=== PATIENT | female | born 1950 | race African-American/Black ===

== ENCOUNTER 2017-12-15 12:39 | Inpatient (IN) | payer MEDICARE ==
[2017-12-15] MEDS: Cefepime 1 GM in Sodium Chloride 0.9% 100 ML IVPB SCH (17:39)
[2017-12-15] MEDS ORDERED: Benzonatate 100 MG CAP PO PRN (17:54)
[2017-12-15] MEDS ORDERED: hydrALAZINE 20 MG/ML VIAL SLOW IVP PRN (17:54)
[2017-12-15] MEDS ORDERED: Ondansetron HCl/PF 4 MG/2 ML Vial IVP PRN (17:54)
[2017-12-15] MEDS ORDERED: cloNIDine 0.1 MG TAB PO PRN (17:54)
[2017-12-15] MEDS ORDERED: Ondansetron ODT 4 MG TAB PO PRN (17:54)
[2017-12-15] MEDS: Acetaminophen 500 MG TAB PO PRN (18:31)
[2017-12-15] MEDS: Famotidine 20 MG TAB PO SCH (21:04)
[2017-12-15] MEDS: Enoxaparin Sodium 80 MG/0.8 ML SYRINGE SC SCH (21:05)
--- NOTE | 2017-12-16 00:49 | HP ---
DATE OF ADMISSION: 12/15/2017 PRIMARY CARE PROVIDER: Dr. Daniela Gaines. Previously, Dr. Johnnie Stokes. CHIEF COMPLAINT: Shortness of breath and right lower extremity swelling. HISTORY OF PRESENT ILLNESS: This is a 67-year-old -Azerbaijani female who presents to [facility] and transfer from [facility] in [place], [place]; after the patien t was recently admitted for increasing right lower extremity swelling discovered with an extensive de ep venous thrombosis on 12/15/2017. The patient also had complained of increasing cough and shortnes s of breath and diagnosed with a possible early pneumonia in the right lower chest. The patient was admitted to the hospital for pulmonary infection, receiving Zosyn and Levaquin. The patient also com plained of increasing shortness of breath despite IV antibiotic therapy and pulmonary support. The p atgonzalo underwent CT angiogram of the chest showing evidence of massive bilateral pulmonary embolus wi th associated significant parenchymal disease, right greater than left. The patient received Xarelto 15 mg as well as 120 mg of Lovenox and was transferred to [facility] for further evaluation and Pulmonology consultation. The patient denies any prior similar history, sedentary lifestyle, re cent extremity trauma or surgical intervention. The patient denies any history of prior pneumonia, b ut does state she smoked for many years, quitting in the last 4 days prior to this evaluation. The dianna rudd admits to history of hypertension as well as mild COPD treated with intermittent bronchodilato r via metered dose inhaler. The patient denies any hemoptysis, fever, chills, home oxygen use or rec ent chest trauma. The patient states her shortness of breath has improved after receiving the blood thinners stated previously. PAST MEDICAL HISTORY: 1. Hypertension. 2. Tobacco abuse. 3. Hyperlipidemia. 4. Chronic obstructive pulmonary disease. PAST SURGICAL HISTORY: Status post bilateral tubal ligation. CURRENT MEDICATIONS: 1. Vitamin D3 of 5000 units p.o. daily. 2. Nexium 40 mg p.o. daily. 3. Lisinopril 20 mg p.o. daily. ALLERGIES: ASPIRIN, EZETIMIBE, HYDROCHLOROTHIAZIDE, TRIAMTERENE. FAMILY HISTORY: Positive for hypertension. SOCIAL HISTORY: The patient is , resides near [place], [place] in [place]. Smokes up to a pack of cigarettes daily. No alcohol or illicit drug use. Functional of all activities of daily living. REVIEW OF SYSTEMS: The following complete review of systems was negative, unless otherwise mentioned in the HPI or below: Constitutional: Weight loss or gain, ability to conduct usual activities. Ski n: Rash, itching. Eyes: Double vision, pain. ENT/Mouth: Nose bleeding, neck stiffness, pain, tend erness. Cardiovascular: Palpitations, dyspnea on exertion, orthopnea. Respiratory: Shortness of b reath, wheezing, cough, hemoptysis, fever or night sweats. Gastrointestinal: Poor appetite, abdomin al pain, heartburn, nausea, vomiting, constipation, or diarrhea. Genitourinary: Urgency, frequency, dysuria, nocturia. Musculoskeletal: Pain, swelling. Neurologic/Psychiatric: Anxiety, depression. Allergy/Immunologic: Skin rash, bleeding tendency. Otherwise negative except as stated per HPI. PHYSICAL EXAMINATION: VITAL SIGNS: Currently, blood pressure 144/67, pulse 101, respiratory rate 20, temperature 98.5 degr ees Fahrenheit, O2 saturation 95% on 4 liters by nasal cannula. GENERAL APPEARANCE: This is a 67-year-old -Azerbaijani female, alert and oriented x3, pleasant, conversant, in no acute distress. HEENT: Pupils are equal, round, and reactive to light and accommodation. Extraocular muscles are in tact. No scleral icterus, no conjunctival injection. Nares patent. OP is clear. NECK: Supple, no cervical adenopathy, no thyromegaly, no carotid bruits, no JVD appreciated. Cervic al spine with full active and passive range of motion. No meningeal signs appreciated. CHEST: Diminished breath sounds in the bases bilaterally with occasional expiratory wheezes. CARDIOVASCULAR: S1, S2 with distant heart sounds. No murmur, rub or gallop appreciated. ABDOMEN: Rounded, soft, nontender, nondistended. Bowel sounds are positive in all four quadrants. There is no hepatosplenomegaly, no abdominal bruits, no rebound or guarding appreciated. EXTREMITIES: Warm and dry with fair turgor. Mild pitting edema to the right lower extremity compare d to the left lower extremity. Pulses are palpable distally at the dorsalis pedis, posterior tibial, and popliteal arteries bilaterally. Capillary refill less than 2 seconds. NEUROLOGIC: Cranial nerves II-XII are grossly intact. No focal or lateralizing signs appreciated. PERTINENT LABORATORY AND X-RAY FINDINGS: Sodium 135, potassium 4.0, chloride 107, CO2 of 22, BUN 13, creatinine 0.8, glucose 110, calcium 8.6. LFTs within normal limits. CBC showed a white blood cell count of 19.9, hemoglobin 11.4, hematocrit 34, platelet count 157. Telemetry monitoring shows a sin us mechanism without acute arrhythmia or dysrhythmia. CT angiogram of the chest dated 12/15/2017 og wed massive bilateral pulmonary embolus with associated parenchymal disease, right greater than left. ASSESSMENT AND PLAN: 1. Acute bilateral pulmonary emboli. The patient will be admitted to the intermediate care unit. W e will continue general pulmonary supportive measures. Lovenox 80 mg subcutaneously q.12 hours. Pul monology consultation. A 2D transthoracic echocardiogram performed 12/15/[address] [facility] showed ejection fraction of 83%. Enlarged left atrium with mitral and tricuspid regurgitation. 2. Right lower extremity deep venous thrombosis. We will continue Lovenox 80 mg subcutaneously q.12 hours as stated previously in #1. 3. Hypertension. Continue lisinopril 20 mg daily. Serial blood pressure monitoring. 4. Tobacco abuse. We will offer smoking cessation resources prior to discharge. Consider transderm al nicotine replacement. 5. Prophylaxis. Hold sequential compression devices due to right lower extremity deep venous thromb osis. Pepcid 20 mg p.o. b.i.d. 6. Code status is FULL. Surrogate medical decision maker is patient's spouse.
[2017-12-16 04:59] LABS: Anion Gap 13 mmol/L (10-20); BUN (Urea Nitrogen) 15 mg/dL (9.8-20.1); Calc. Creatinine Clearance 87 mL/min (70-130); Carbon Dioxide 19 mmol/L (23-31); Chloride 111 mmol/L (98-107); Estimated GFR-MDRD 83; Glucose 145 mg/dL (80-115); Sodium 139 mmol/L (136-145)
[2017-12-16 05:37] LABS: Band 27 % (5-11); Hemoglobin 10.9 g/dL (12.0-16.0); Lymphocytes 4 % (21-51); MDiff Complete? YES; Mean Corpuscular HGB CONC 33.2 g/dL (32.0-36.0); Mean Corpuscular Hemoglobin 28.3 pg (27.0-31.0); Mean Corpuscular Volume 85.4 fL (78.0-98.0); Mean Platelet Volume 9.3 fL (7.4-10.4); Monocytes 2 % (0-10); Neutrophil 67 % (42-75); PLT Morphology Comment Appears Adequate; Platelet Count 186 thou/uL (130-400); RBC Distribution Width 13.3 % (11.5-14.5); Red Blood Cell (RBC) Count 3.84 mill/uL (4.20-5.40); White Blood Cell (WBC) Count 24.3 thou/uL (4.8-10.8)
[2017-12-16] MEDS: Cefepime 1 GM in Sodium Chloride 0.9% 100 ML IVPB SCH ×2 (05:41→17:27)
[2017-12-16] MEDS ORDERED: Furosemide 40 MG/4 ML VIAL SLOW IVP SCH (08:45)
--- NOTE | 2017-12-16 10:04 | CON ---
DATE OF CONSULTATION: 12/15/2017 HISTORY OF PRESENT ILLNESS: A 67-year-old female who apparently states she is 187-pound, 5 feet 6 inches, BMI 30 who apparently presented to the ER last Wednesday, 4 days ago with pain and swelling in the right and left leg. She was discharged home with tramadol. She comes back several days later with worsening swelling and a cough. X-ray was taken apparently a diagnosis of pneumonia was made. In the interim, ultrasound of the leg revealed extensive DVT. She had an echocardiogram which showed also massive pulmonary emboli. Apparently the report of the echocardiogram shows EF was normal. The patient was transferred from [facility] directly to the MICU. She is awake, alert, responsive. She tells me she has a longstanding history of tobacco abuse, a pack every 3 days. Of a year ago, she was walking up to a mile and a half a day. She has been employed at [employer]. She was a nurse for a period of time. She was an [employer] for a period of time. 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 She denies any previous history of TB, pneumonia, bronchial asthma. She is coughing some yellow sputum. Had a low grade fever, but denies any chest pain or chills. She is telling me right now she is not short of breath. In [facility] as per the medical records, she received 2 doses of Lovenox apparently 60 mg x2 and apparently Xarelto 50 mg apparently yesterday or today is unclear. PAST MEDICAL HISTORY: Pertinent mainly for hypertension. Denies diabetes. PAST SURGICAL HISTORY: Tubal ligation. MEDICATIONS AT HOME: Include lisinopril, Ventolin, Nexium, and tramadol. ALLERGIES: ASPIRIN, ZETIA, AND MAXIDE. SOCIAL HISTORY: She apparently lives with her . PHYSICAL EXAMINATION: GENERAL: She is awake, alert, responsive. VITAL SIGNS: Sats are 94% on supplemental oxygen 4 L, pulse 80, blood pressure is 130/80. She is awake. Her right leg is markedly swollen. Left leg is unremarkable. CHEST: Extensive rhonchi noted in the entire right chest. Left lung unremarkable. CARDIAC: Sinus tachycardia. ABDOMEN: Distended, soft. NEUROLOGIC: She is awake and responsive. LABORATORY DATA: Extensive lab results were reviewed from [facility]. Glucose was slightly elevated. Liver functions were normal. Kidney function was normal. H&H 11 and 35. Her vital signs at [facility] revealed a blood pressure of 140/82, oxygen saturation was 95%, pulse was 78 upon arrival in the ER over there. White count was 15,000. I reviewed the CAT scan of the chest has extensive right-sided infiltrate, small right pleural effusion, pulmonary emboli. Ultrasound shows extensive right leg DVT. IMPRESSION: 1. Extensive right leg deep venous thrombosis with pulmonary emboli. 2. Right-sided pneumonia with pleural effusion. 3. Hypertension. I would reinitiate Lovenox mg per kg subcu q.12 hours. Hold Xarelto for the time being, broad-spectrum antibiotics initiated, nebulizer treatments and steroids. Proton pump inhibitors. We will follow up and discuss. Forty-five minutes critical care time. NELL
--- NOTE | 2017-12-16 10:09 | RAD ---
CHEST 1 VIEW: Date: 12/16/17 HISTORY: Ventilated patient. COMPARISON: None. FINDINGS: Exam is limited due to rightward patient. There is extensive bilateral air space opacity throughout b oth lungs. Right greater than left small to moderate pleural effusions. No pneumothorax. IMPRESSION: 1. Layering bilateral pleural effusions, larger on the right. 2. Extensive air space opacities throughout the lungs concerning for multifocal infection. POS: [facility]
--- NOTE | 2017-12-16 10:09 | PRG ---
DATE OF SERVICE: 12/16/2017 HISTORY: Nathalie Reyes is a 67-year-old female with bilateral pulmonary emboli and DVT who developed m arked shortness of breath this morning after she went to the bathroom, unable to catch her breath. S he was placed on BiPAP to which she says she seems better. Denies any coughing or wheezing. PHYSICAL EXAMINATION: VITAL SIGNS: Her sats were 93% prior to that on 4 liters, respiration 20, pulse 102, temperature 97, blood pressure 155/97. CHEST: Decreased breath sounds, no wheezing. CARDIAC: Normal S1, S2, no gallops. ABDOMEN: Soft. No masses. LABORATORY: Electrolytes are normal. PH is normal. White count 24,000. X-ray shows extensive bila teral infiltrates, haziness consistent with congestive heart failure and pneumonia. There may be a s mall pleural effusion. IMPRESSION: 1. Bilateral pulmonary emboli. 2. Extensive deep venous thrombosis. 3. Obesity. 4. Hypertension. 5. Possibly pneumonia. PLAN: Continue broad spectrum antibiotics, steroids, neb treatments, Lovenox. Continue Lovenox unti l she is stable. Thereafter, we can switch her to either Xarelto or Eliquis. Lasix been ordered. Echo is being ordered. I will follow.
[2017-12-16] MEDS: Lisinopril 20 MG TAB PO SCH (10:14)
[2017-12-16] MEDS: Enoxaparin Sodium 80 MG/0.8 ML SYRINGE SC SCH ×2 (10:15→20:21)
[2017-12-16] MEDS: Famotidine 20 MG TAB PO SCH ×2 (10:16→20:30)
[2017-12-16] MEDS: Acetaminophen 500 MG TAB PO PRN ×3 (10:23→23:43)
[2017-12-16 12:22] VITALS: BMI 31.6
--- NOTE | 2017-12-16 15:50 | PDOC.PN ---
- Subjective Encounter Start Date: 12/16/17 Encounter Start Time: 15:35 Subjective: f/u for bilateral PE's/RLE DVT on Lovenox. Required BiPAP earlier this -: am with worsening SOB. Remains on FM O2 currently. - Objective Resuscitation Status: Resuscitation Status FULL:Full Resuscitation MAR Reviewed: Yes Vital Signs & Weight: Vital Signs (12 hours) Temp Pulse Resp BP Pulse Ox 12/16/17 12:18 96 16 93 L 12/16/17 11:12 97.8 F 101 H 22 H 148/93 H 94 L 12/16/17 08:00 97.7 F 102 H 20 93 L 12/16/17 07:28 97.7 F 102 H 20 155/97 H 93 L 12/16/17 06:43 96 12/16/17 06:36 95 16 96 12/16/17 04:00 97.7 F 109 H 20 122/78 97 Weight Admit Weight 187 lb Weight 196 lb 3 oz I&O: 12/15/17 12/16/17 12/17/17 06:59 06:59 06:59 Intake Total 1320 Output Total 1000 Balance 320 Result Diagrams: 12/16/17 04:19 12/16/17 04:19 Additional Labs: Microbiology 12/16/17 04:45 Stool Stool Occult Blood (CÉSAR) - Final 12/16/17 01:55 Sputum Respiratory Culture - Preliminary Laboratory Tests 12/15/17 12/16/17 16:57 04:19 B-Natriuretic Peptide 418.1 H TSH 3rd Generation 0.1234 L Radiology Reviewed by me: Yes (PCXR - bilat pleural effusions R>L, diffuse interstitial changes) EKG Reviewed by me: Yes (Tele - Sinus tachycardia in 100's) Phys Exam - Physical Examination alert, resp distress, responsive to questions HEENT: PERRLA, sclera anicteric, oral pharynx no lesions Neck: no nodes, no JVD, supple, full ROM diminished in bases, occasional rhonchi tachycardic S1, S2 Cardiovascular: no significant murmur, no rub, gallop Gastrointestinal: soft, non-tender, no distention, positive bowel sounds minimal peripheral edema Musculoskeletal: pulses present Neurological: non-focal, normal sensation, moves all 4 limbs Psychiatric: normal affect, A&O x 3 Skin: normal turgor, cap refill <2 seconds Dx/Plan (1) Pulmonary embolism, bilateral Code(s): I26.99 - OTHER PULMONARY EMBOLISM WITHOUT ACUTE COR PULMONALE Status : Acute Comment: Extensive involvement, continue Lovenox BID, O2 support (2) Deep vein thrombosis (DVT) of right lower extremity Code(s): I82.401 - ACUTE EMBOLISM AND THOMBOS UNSP DEEP VEINS OF R LOW EXTREM Status: Acute Qualifiers: Chronicity: acute Comment: RLE involvement, continue Lovenox 80mg sc BID (3) Acute respiratory failure with hypoxia Code(s): J96.01 - ACUTE RESPIRATORY FAILURE WITH HYPOXIA Status: Acute Comment: BiPAP as clinically needed, O2 via FM currently, Duonebs, Solumedrol, empiric Levaquin and Cefepime with ? underlying infectious process (4) Tobacco abuse Code(s): Z72.0 - TOBACCO USE Status: Chronic Comment: Tobacco cessation resources (5) HTN (hypertension) Code(s): I10 - ESSENTIAL (PRIMARY) HYPERTENSION Status: Chronic Qualifiers: Hypertension type: essential hypertension Qualified Code(s): I10 - Essential (primary) hypertension Comment: stable, continue Lisinopril 20mg daily - Plan continue antibiotics, social scientist, respiratory therapy Stable overall -: Continue Lovenox 80mg sc BID -: Repeat 2D echo -: Continue pulmonary supportive measures with Solumedrol, Levaquin, Duonebs -: PCXR in am * AM lab: BMP, CBC
[2017-12-16 17:43] LABS: Actual Bicarbonate (HCO3a) 20.2 mEq/L (22-28); Base Excess (BEa) -2.7 mEq/L (-2.0 to +3.0); CO2 Tension 29.5 mmHg (35.0-45.0); Carboxyhemoglobin (COHb) 0.9 gm% (0.0-3.0); Hemoglobin (Hb) 12.7 g/dL (12.0-16.0); O2 Tension (PaO2) 62.1 mmHg (> 80.0); Potassium - ABG Lab 3.6 mmol/L (3.70-5.30); pH, Arterial 7.45 (7.35-7.45)
[2017-12-16 17:44] LABS: ALV-art Gradient 293.175 (0-20); Calcium, Ionized 1.17 mmol/L (1.12-1.30); Puncture Site LR
[2017-12-16] MEDS ORDERED: ALPRAZolam 0.25 MG TAB PO SCH (18:15)
[2017-12-16] MEDS: ALPRAZolam 0.25 MG TAB PO SCH (20:21)
[2017-12-17 04:11] LABS: Anion Gap 15 mmol/L (10-20); BUN (Urea Nitrogen) 16 mg/dL (9.8-20.1); Calc. Creatinine Clearance 84 mL/min (70-130); Calcium 9.3 mg/dL (7.8-10.44); Carbon Dioxide 24 mmol/L (23-31); Chloride 107 mmol/L (98-107); Estimated GFR-MDRD 75; Glucose 131 mg/dL (80-115); Potassium 4.1 mmol/L (3.5-5.1); Sodium 142 mmol/L (136-145)
[2017-12-17 04:17] LABS: Band 3 % (5-11); Hemoglobin 12.3 g/dL (12.0-16.0); MDiff Complete? YES; Mean Corpuscular HGB CONC 33.4 g/dL (32.0-36.0); Mean Corpuscular Hemoglobin 28.6 pg (27.0-31.0); Mean Corpuscular Volume 85.7 fL (78.0-98.0); Mean Platelet Volume 9.9 fL (7.4-10.4); Monocytes 4 % (0-10); Neutrophil 93 % (42-75); PLT Morphology Comment Appears Adequate; Platelet Count 221 thou/uL (130-400); RBC Distribution Width 13.5 % (11.5-14.5); RBC Morphology Normal; Red Blood Cell (RBC) Count 4.29 mill/uL (4.20-5.40)
[2017-12-17] MEDS: Cefepime 1 GM in Sodium Chloride 0.9% 100 ML IVPB SCH ×2 (05:39→17:19)
[2017-12-17] MEDS ORDERED: Furosemide 40 MG/4 ML VIAL SLOW IVP SCH (08:30)
--- NOTE | 2017-12-17 08:33 | PRG ---
DATE OF SERVICE: 12/17/2017 She is a 67-year-old female who this morning she is on a BiPAP, having difficulty breathing. PHYSICAL EXAMINATION: VITAL SIGNS: Temperature 98, pulse 128, sats 100%, blood pressure 154/88. Her I's and O's 1287 in, 2810 out. CHEST: Chest revealed extensive rhonchi and crackles bilaterally. CARDIAC: Sinus tachycardia. ABDOMEN: Soft. On 55% FiO2 her pO2 was only 62, pH of 7.45. White count 20,000, H&H 12 and 36, platelet count of 23 1. Electrolytes are normal. IMPRESSION: 1. Respiratory failure. 2. Bilateral bronchopneumonia. 3. Bilateral pulmonary emboli, extensive. 4. Right leg deep venous thrombosis much improved. 5. Probably congestive heart failure. PLAN: We will try high flow O2 to see if it will help with breathing. Continue steroids, neb treatm ents, and broad-spectrum antibiotics. Continue Lovenox. Would not switch her over to Eliquis until she is much more stable. Obviously if her condition gets worse, she may require intubation. Continu e supportive care.
[2017-12-17] MEDS: ALPRAZolam 0.25 MG TAB PO SCH ×3 (08:45→20:16)
[2017-12-17] MEDS: Enoxaparin Sodium 80 MG/0.8 ML SYRINGE SC SCH ×2 (08:46→20:17)
[2017-12-17] MEDS: Famotidine 20 MG TAB PO SCH ×2 (08:52→20:16)
[2017-12-17] MEDS: Lisinopril 20 MG TAB PO SCH (08:52)
--- NOTE | 2017-12-17 09:09 | RAD ---
CHEST 1 VIEW: HISTORY: Ventilated patient. COMPARISON: Radiograph of prior day. FINDINGS: Heart size is enlarged. Moderate edema. Small effusions. IMPRESSION: Cardiomegaly with small effusions and moderate pulmonary edema. Multifocal infection is also a possi bility. POS: [facility]
--- NOTE | 2017-12-17 10:44 | PDOC.PN ---
- Subjective Encounter Start Date: 12/17/17 Encounter Start Time: 10:35 Subjective: f/u for bilat PE's and RLE DVT on Lovenox. Remains on high-flow O2 -: and feeling a little better today. - Objective Resuscitation Status: Resuscitation Status FULL:Full Resuscitation MAR Reviewed: Yes Vital Signs & Weight: Vital Signs (12 hours) Temp Pulse Resp BP BP Pulse Ox 12/17/17 08:52 148/96 H 12/17/17 08:46 103 H 34 H 12/17/17 08:30 92 L 12/17/17 07:30 98.2 F 101 H 28 H 154/88 H 100 12/17/17 07:18 98.2 F 89 27 H 96 12/17/17 04:00 89 27 H 108/83 100 12/17/17 01:19 102 H 12/17/17 00:01 97.6 F 104 H 28 H 151/79 H 99 Weight Admit Weight 187 lb Weight 191 lb 12.8 oz I&O: 12/16/17 12/17/17 12/18/17 06:59 06:59 06:59 Intake Total 1320 1287 Output Total 1000 2810 Balance 320 -1523 Result Diagrams: 12/17/17 03:22 12/17/17 03:22 Additional Labs: Microbiology 12/16/17 04:45 Stool Stool Occult Blood (CÉSAR) - Final 12/16/17 01:55 Sputum Respiratory Culture - Preliminary Laboratory Tests 12/15/17 12/16/17 12/16/17 16:57 04:19 04:19 WBC 24.3 H Hgb 10.9 L Band Neuts % (Manual) 27 H B-Natriuretic Peptide 418.1 H TSH 3rd Generation 0.1234 L 12/17/17 03:22 WBC Hgb Band Neuts % (Manual) 3 L B-Natriuretic Peptide TSH 3rd Generation Radiology Reviewed by me: Yes (PCXR - bilat infiltrates, small effusions) EKG Reviewed by me: Yes (Tele - SR) Phys Exam - Physical Examination alert, responsive, mild resp distress high-flow NC in place HEENT: PERRLA, sclera anicteric, oral pharynx no lesions Neck: no nodes, no JVD, supple, full ROM scattered rhonchi, diminished in bases S1, S2 Cardiovascular: RRR, no significant murmur, no rub, gallop Gastrointestinal: soft, non-tender, no distention, positive bowel sounds Musculoskeletal: no edema, pulses present Neurological: normal sensation, moves all 4 limbs Psychiatric: normal affect, A&O x 3 Skin: no rash, normal turgor, cap refill <2 seconds Dx/Plan (1) Pulmonary embolism, bilateral Code(s): I26.99 - OTHER PULMONARY EMBOLISM WITHOUT ACUTE COR PULMONALE Status : Acute Comment: Extensive involvement, continue Lovenox BID, O2 support (2) Deep vein thrombosis (DVT) of right lower extremity Code(s): I82.401 - ACUTE EMBOLISM AND THOMBOS UNSP DEEP VEINS OF R LOW EXTREM Status: Acute Qualifiers: Chronicity: acute Comment: RLE involvement, continue Lovenox 80mg sc BID (3) Acute respiratory failure with hypoxia Code(s): J96.01 - ACUTE RESPIRATORY FAILURE WITH HYPOXIA Status: Acute Comment: BiPAP as clinically needed, high-flow O2 via NC, Duonebs, Solumedrol, empiric Levaquin and Cefepime with ? underlying infectious process, likely more edema than infectious process (4) Tobacco abuse Code(s): Z72.0 - TOBACCO USE Status: Chronic Comment: Tobacco cessation resources (5) HTN (hypertension) Code(s): I10 - ESSENTIAL (PRIMARY) HYPERTENSION Status: Chronic Qualifiers: Hypertension type: essential hypertension Qualified Code(s): I10 - Essential (primary) hypertension Comment: stable, continue Lisinopril 20mg daily (6) Pulmonary edema Code(s): J81.1 - CHRONIC PULMONARY EDEMA Status: Acute Qualifiers: Chronicity: acute Qualified Code(s): J81.0 - Acute pulmonary edema Comment: Likely multifactorial given extensive PE's, repeat Echo pending, Lasix 40mg IV daily, monitor I/O's - Plan continue antibiotics, social welfare administrator, respiratory therapy continue pulm supportive measures -: High-flow O2 as clinically indicated -: Continue Duonebs, Levaquin and Cefepime -: Lasix 40mg IV daily -: Continue Lovenox 80mg sc BID * AM lab: BMP, CBC, FT4 * 2D Echo pending
[2017-12-17] MEDS: Acetaminophen 500 MG TAB PO PRN ×2 (12:08→20:16)
[2017-12-17] MEDS: Mometasone/Formoterol 120 PUFF INHALER INH SCH (18:58)
[2017-12-18 04:15] LABS: Anion Gap 14 mmol/L (10-20); BUN (Urea Nitrogen) 20 mg/dL (9.8-20.1); Calc. Creatinine Clearance 77 mL/min (70-130); Carbon Dioxide 27 mmol/L (23-31); Chloride 101 mmol/L (98-107); Estimated GFR-MDRD 70; Glucose 152 mg/dL (80-115); Hemoglobin 12.4 g/dL (12.0-16.0); Mean Corpuscular HGB CONC 32.7 g/dL (32.0-36.0); Mean Corpuscular Hemoglobin 28.1 pg (27.0-31.0); Mean Corpuscular Volume 85.9 fL (78.0-98.0); Mean Platelet Volume 9.4 fL (7.4-10.4); Platelet Count 231 thou/uL (130-400); Potassium 4.1 mmol/L (3.5-5.1); RBC Distribution Width 13.5 % (11.5-14.5); Red Blood Cell (RBC) Count 4.41 mill/uL (4.20-5.40); Sodium 138 mmol/L (136-145); White Blood Cell (WBC) Count 23.6 thou/uL (4.8-10.8)
[2017-12-18 04:16] LABS: Band 2 % (5-11); Lymphocytes 10 % (21-51); MDiff Complete? YES; Neutrophil 88 % (42-75); Nucleated RBC 1 % (0); PLT Morphology Comment Appears Adequate
[2017-12-18] MEDS: Cefepime 1 GM in Sodium Chloride 0.9% 100 ML IVPB SCH ×2 (05:30→17:28)
[2017-12-18] MEDS: Enoxaparin Sodium 80 MG/0.8 ML SYRINGE SC SCH ×2 (08:18→20:35)
[2017-12-18] MEDS: Lisinopril 20 MG TAB PO SCH (08:19)
[2017-12-18] MEDS: Famotidine 20 MG TAB PO SCH ×2 (08:20→20:36)
[2017-12-18] MEDS: ALPRAZolam 0.25 MG TAB PO SCH ×3 (08:20→20:36)
[2017-12-18] MEDS: Mometasone/Formoterol 120 PUFF INHALER INH SCH ×2 (08:25→18:17)
--- NOTE | 2017-12-18 09:27 | RAD ---
PORTABLE UPRIGHT CHEST 1 VIEW: HISTORY: A 67-year-old female with a history of respiratory insufficiency. FINDINGS: Again noted are fairly extensive interstitial and reticulonodular parenchymal changes bilaterally wit h some blunting of the right costophrenic angle. Appearance is stable to slightly improved from the prior study. IMPRESSION: Stable to possibly slightly improved interstitial changes and right costophrenic angle blunting from the prior study. Continue short-term followup. POS: [facility]
--- NOTE | 2017-12-18 09:32 | PDOC.PN ---
- Subjective Encounter Start Date: 12/18/17 Encounter Start Time: 09:30 Ms. Reyes was seen today in follow-up of DVT and PE. She is still having some dyspnea, She is anxious, and has a lot of questions concerning her condition. - Objective Resuscitation Status: Resuscitation Status FULL:Full Resuscitation MAR Reviewed: Yes Vital Signs & Weight: Vital Signs (12 hours) Temp Pulse Resp BP BP Pulse Ox 12/18/17 08:25 85 20 12/18/17 08:19 159/67 H 12/18/17 08:11 94 L 12/18/17 08:10 94 20 12/18/17 07:57 98.1 F 91 24 H 86 L 12/18/17 07:25 98.1 F 91 24 H 164/73 H 90 L 12/18/17 07:19 66 L 12/18/17 04:21 98.8 F 89 20 140/79 92 L 12/18/17 02:45 91 L 12/18/17 02:44 99 20 91 L 12/18/17 00:25 98.8 F 100 35 H 142/78 H 90 L Weight Admit Weight 187 lb Weight 191 lb 12.8 oz I&O: 12/17/17 12/18/17 12/19/17 06:59 06:59 06:59 Intake Total 1287 1986 240 Output Total 2810 2950 Balance -1523 -964 240 Result Diagrams: 12/18/17 03:26 12/18/17 03:26 Phys Exam - Physical Examination HEENT: PERRLA, sclera anicteric + rhonchi and a few wheezing- bilaterally. No rales noted Cardiovascular: RRR, no significant murmur, no rub no gallop Gastrointestinal: soft, non-tender, no distention, positive bowel sounds Musculoskeletal: edema present Neurological: non-focal, moves all 4 limbs Psychiatric: normal affect Dx/Plan (1) Acute respiratory failure with hypoxia Code(s): J96.01 - ACUTE RESPIRATORY FAILURE WITH HYPOXIA Status: Acute Comment: BiPAP as clinically needed, high-flow O2 via NC, Duonebs, Solumedrol, empiric Levaquin and Cefepime with ? underlying infectious process, likely more edema than infectious process (2) Deep vein thrombosis (DVT) of right lower extremity Code(s): I82.401 - ACUTE EMBOLISM AND THOMBOS UNSP DEEP VEINS OF R LOW EXTREM Status: Acute Qualifiers: Chronicity: acute Comment: RLE involvement, continue Lovenox 80mg sc BID (3) Pulmonary embolism, bilateral Code(s): I26.99 - OTHER PULMONARY EMBOLISM WITHOUT ACUTE COR PULMONALE Status : Acute Comment: Extensive involvement, continue Lovenox BID, O2 support (4) HTN (hypertension) Code(s): I10 - ESSENTIAL (PRIMARY) HYPERTENSION Status: Chronic Qualifiers: Hypertension type: essential hypertension Qualified Code(s): I10 - Essential (primary) hypertension Comment: stable, continue Lisinopril 20mg daily - Plan * Acute respiratory failure due to PE and Probable Pneumonia * PE- continue Lovenox and supplemental oxygen- Echo results were noted- there is no evidence of RV strain * DVT- continue Lovenox * Probable Pneumonia- continue Cefepime and Levaquin. * She has significant clot burden and as such will need to remain in the hospital a few more days * Leukocytosis- continue to monitor - this could be due to Pneumonia
--- NOTE | 2017-12-18 10:55 | PRG ---
DATE OF SERVICE: 12/18/2017 SUBJECTIVE: The patient remains in the CCU on high flow oxygen. PHYSICAL EXAMINATION: VITAL SIGNS: Temperature is 98.1, pulse 85, blood pressure 159/67, respiratory rate 20, O2 saturatio n in the mid 90s on the high flow oxygen. HEENT: Unremarkable. NECK: No JVD. LUNGS: Fairly clear posteriorly. ABDOMEN: Soft. EXTREMITIES: No edema. X-RAY FINDINGS: Chest x-ray shows what appears to be a right effusion. She has a hazy appearance in both lung meyer. LABORATORY DATA: White blood cell count 23.6, hematocrit 27.9, platelet count 231. Sodium 130, pota ssium 4.1, chloride 101, CO2 27, BUN 20, creatinine 0.9, glucose 152. Echocardiogram demonstrated di astolic dysfunction. ASSESSMENT: 1. Respiratory failure. 2. Bilateral pulmonary emboli. 3. Bilateral pneumonia. 4. Deep venous thrombosis. 5. Probably underlying congestive heart failure. PLAN: She did not do well when we attempted to wean her oxygen today. Therefore, she will continue high flow nasal cannula. We will continue the antibiotics. She was given a dose of Lasix yesterday, but it is not clear to me if that was helpful. She will continue to remain in the IMCU for the time being.
[2017-12-18] MEDS: Acetaminophen 500 MG TAB PO PRN ×2 (12:47→20:36)
[2017-12-18] MEDS: traMADol HCl 50 MG TAB PO PRN (14:34)
[2017-12-19] MEDS: traMADol HCl 50 MG TAB PO PRN (01:14)
[2017-12-19] MEDS: Cefepime 1 GM in Sodium Chloride 0.9% 100 ML IVPB SCH ×2 (05:54→18:06)
[2017-12-19 06:08] LABS: Anion Gap 12 mmol/L (10-20); BUN (Urea Nitrogen) 22 mg/dL (9.8-20.1); Calc. Creatinine Clearance 90 mL/min (70-130); Calcium 8.8 mg/dL (7.8-10.44); Carbon Dioxide 24 mmol/L (23-31); Chloride 104 mmol/L (98-107); Estimated GFR-MDRD 84; Glucose 147 mg/dL (80-115); Potassium 4.2 mmol/L (3.5-5.1); Sodium 136 mmol/L (136-145)
[2017-12-19 06:45] LABS: Band 1 % (5-11); Lymphocytes 12 % (21-51); MDiff Complete? YES; Mean Corpuscular HGB CONC 31.8 g/dL (32.0-36.0); Mean Corpuscular Hemoglobin 27.3 pg (27.0-31.0); Mean Platelet Volume 9.4 fL (7.4-10.4); Monocytes 3 % (0-10); Neutrophil 84 % (42-75); PLT Morphology Comment Appears Adequate; Platelet Count 195 thou/uL (130-400); RBC Distribution Width 13.6 % (11.5-14.5); RBC Morphology Normal; White Blood Cell (WBC) Count 21.9 thou/uL (4.8-10.8)
--- NOTE | 2017-12-19 07:45 | PDOC.PN ---
- Subjective Encounter Start Date: 12/19/17 Encounter Start Time: 07:43 Ms. Reyes was seen today in follow-up of PE and DVT. She does not have any complaints. - Objective Resuscitation Status: Resuscitation Status FULL:Full Resuscitation MAR Reviewed: Yes Vital Signs & Weight: Vital Signs (12 hours) Temp Pulse Resp BP Pulse Ox 12/19/17 07:42 97.6 F 83 24 H 155/88 H 100 12/19/17 04:00 97.8 F 67 14 129/69 100 12/19/17 02:32 63 20 97 12/19/17 00:00 97.4 F L 75 18 125/68 99 12/18/17 22:08 72 20 94 L 12/18/17 19:56 98 F 84 19 126/63 92 L Weight Admit Weight 187 lb Weight 189 lb 1.6 oz I&O: 12/18/17 12/19/17 12/20/17 06:59 06:59 06:59 Intake Total 1986 1432 Output Total 2950 1500 Balance -964 -68 Result Diagrams: 12/19/17 05:33 12/19/17 05:33 Phys Exam - Physical Examination HEENT: PERRLA, sclera anicteric Respiratory: no wheezing, no rales + Rhonchi bilaterally Cardiovascular: RRR, no significant murmur, no rub Gastrointestinal: soft, non-tender, no distention, positive bowel sounds Musculoskeletal: edema present trace pedal edema Neurological: non-focal, moves all 4 limbs Psychiatric: normal affect, A&O x 3 Dx/Plan (1) Acute respiratory failure with hypoxia Code(s): J96.01 - ACUTE RESPIRATORY FAILURE WITH HYPOXIA Status: Acute Comment: BiPAP as clinically needed, high-flow O2 via NC, Duonebs, Solumedrol, empiric Levaquin and Cefepime with ? underlying infectious process, likely more edema than infectious process (2) Deep vein thrombosis (DVT) of right lower extremity Code(s): I82.401 - ACUTE EMBOLISM AND THOMBOS UNSP DEEP VEINS OF R LOW EXTREM Status: Acute Qualifiers: Chronicity: acute Comment: RLE involvement, continue Lovenox 80mg sc BID (3) Pulmonary embolism, bilateral Code(s): I26.99 - OTHER PULMONARY EMBOLISM WITHOUT ACUTE COR PULMONALE Status : Acute Comment: Extensive involvement, continue Lovenox BID, O2 support (4) HTN (hypertension) Code(s): I10 - ESSENTIAL (PRIMARY) HYPERTENSION Status: Chronic Qualifiers: Hypertension type: essential hypertension Qualified Code(s): I10 - Essential (primary) hypertension Comment: stable, continue Lisinopril 20mg daily - Plan * Acute Respiratory failure with hypoxemia- continue treatment for PE and presumed pneumonia * PE- continue Lovenox- she is still requiring high flow oxygen * DVT- continue Lovenox * Presumed Pneumonia- continue Levaquin and Cefepime * HTN- blood pressure is stable.
[2017-12-19] MEDS: Mometasone/Formoterol 120 PUFF INHALER INH SCH ×2 (08:21→18:19)
[2017-12-19] MEDS: Lisinopril 20 MG TAB PO SCH (09:27)
[2017-12-19] MEDS: Famotidine 20 MG TAB PO SCH ×2 (09:28→20:57)
[2017-12-19] MEDS: Enoxaparin Sodium 80 MG/0.8 ML SYRINGE SC SCH (09:28)
[2017-12-19] MEDS: ALPRAZolam 0.25 MG TAB PO SCH ×3 (09:30→20:57)
--- NOTE | 2017-12-19 13:27 | PRG ---
DATE OF SERVICE: 12/19/2017 SUBJECTIVE: The patient has been weaned down from the high flow nasal cannula to 4 liters today and seems to be doing well. PHYSICAL EXAMINATION: VITAL SIGNS: Temperature is 98.7, pulse 98, respirations 16, O2 sat is around 92%-93% on 4 liters. HEENT: Unremarkable. NECK: No JVD. LUNGS: She has few crackles in the bases. CARDIAC: S1 and S2 regular. ABDOMEN: Soft. EXTREMITIES: No edema. LABORATORY DATA: White blood cell count 21.9, hematocrit 37.8, platelet count 195. Sodium 136, pota ssium 4.2, chloride 104, CO2 24, BUN 22, creatinine 0.8, glucose 147. ASSESSMENT: 1. Pulmonary embolism with improved oxygenation. 2. Acute hypoxic respiratory failure. 3. Bilateral pneumonia. 4. Deep venous thrombosis. PLAN: If she holds well on a nasal cannula, then she can probably be transferred to the floor tomorr ow. She is on fairly significant dose of enoxaparin. I think we can go ahead and change that to Lisa castellon.
[2017-12-19] MEDS: Acetaminophen 500 MG TAB PO PRN ×2 (14:47→20:57)
[2017-12-19] MEDS: Apixaban 5 MG TAB PO SCH (20:57)
[2017-12-20] MEDS: traMADol HCl 50 MG TAB PO PRN (01:37)
[2017-12-20] MEDS: Cefepime 1 GM in Sodium Chloride 0.9% 100 ML IVPB SCH (05:39)
[2017-12-20 05:57] LABS: Anion Gap 12 mmol/L (10-20); BUN (Urea Nitrogen) 19 mg/dL (9.8-20.1); Calc. Creatinine Clearance 87 mL/min (70-130); Calcium 8.4 mg/dL (7.8-10.44); Carbon Dioxide 24 mmol/L (23-31); Chloride 106 mmol/L (98-107); Estimated GFR-MDRD 80; Glucose 164 mg/dL (80-115); Potassium 3.9 mmol/L (3.5-5.1); Sodium 138 mmol/L (136-145)
[2017-12-20 06:23] LABS: Band 8 % (5-11); Hemoglobin 11.6 g/dL (12.0-16.0); Lymphocytes 9 % (21-51); MDiff Complete? YES; Mean Corpuscular HGB CONC 32.6 g/dL (32.0-36.0); Mean Corpuscular Hemoglobin 27.9 pg (27.0-31.0); Mean Corpuscular Volume 85.6 fL (78.0-98.0); Mean Platelet Volume 9.4 fL (7.4-10.4); Metamyelocyte 3 % (0-0); Monocytes 4 % (0-10); Neutrophil 76 % (42-75); PLT Morphology Comment Appears Adequate; Platelet Count 204 thou/uL (130-400); RBC Distribution Width 13.7 % (11.5-14.5); Red Blood Cell (RBC) Count 4.17 mill/uL (4.20-5.40); White Blood Cell (WBC) Count 19.8 thou/uL (4.8-10.8)
[2017-12-20] MEDS: Mometasone/Formoterol 120 PUFF INHALER INH SCH ×2 (08:09→19:07)
[2017-12-20] MEDS: Apixaban 5 MG TAB PO SCH ×2 (08:32→20:25)
[2017-12-20] MEDS: Famotidine 20 MG TAB PO SCH ×2 (08:32→20:26)
[2017-12-20] MEDS: Lisinopril 20 MG TAB PO SCH (08:33)
[2017-12-20] MEDS: ALPRAZolam 0.25 MG TAB PO SCH ×3 (08:33→20:25)
--- NOTE | 2017-12-20 10:20 | PDOC.PN ---
- Subjective Encounter Start Date: 12/20/17 Encounter Start Time: 10:19 Ms. Reyes was seen today in follow-up of acute respiratory failure due to PE. She is feeling better. She says she showered on her own, and had no difficulty. - Objective Resuscitation Status: Resuscitation Status FULL:Full Resuscitation MAR Reviewed: Yes Vital Signs & Weight: Vital Signs (12 hours) Temp Pulse Resp BP BP Pulse Ox 12/20/17 08:33 145/82 H 12/20/17 08:07 97 12/20/17 08:05 100 16 95 12/20/17 07:37 97.7 F 71 19 145/82 H 93 L 12/20/17 07:09 97.5 F L 98 20 94 L 12/20/17 04:30 97.5 F L 79 26 H 138/79 94 L 12/20/17 02:40 80 20 95 12/20/17 00:44 97.3 F L 103 H 23 H 126/67 90 L Weight Admit Weight 187 lb Weight 190 lb 12.8 oz I&O: 12/19/17 12/20/17 12/21/17 06:59 06:59 06:59 Intake Total 1432 730 240 Output Total 1500 1250 Balance -68 -520 240 Result Diagrams: 12/20/17 04:52 12/20/17 04:52 Phys Exam - Physical Examination HEENT: PERRLA Respiratory: no wheezing, no rales, no rhonchi, clear to auscultation bilateral Cardiovascular: RRR, no significant murmur, no rub no gallop Gastrointestinal: soft, non-tender, no distention, positive bowel sounds Musculoskeletal: pulses present, edema present trace pedal edema Neurological: non-focal, moves all 4 limbs Dx/Plan (1) Acute respiratory failure with hypoxia Code(s): J96.01 - ACUTE RESPIRATORY FAILURE WITH HYPOXIA Status: Acute Comment: BiPAP as clinically needed, high-flow O2 via NC, Duonebs, Solumedrol, empiric Levaquin and Cefepime with ? underlying infectious process, likely more edema than infectious process (2) Pulmonary embolism, bilateral Code(s): I26.99 - OTHER PULMONARY EMBOLISM WITHOUT ACUTE COR PULMONALE Status : Acute Comment: Extensive involvement, continue Lovenox BID, O2 support (3) Deep vein thrombosis (DVT) of right lower extremity Code(s): I82.401 - ACUTE EMBOLISM AND THOMBOS UNSP DEEP VEINS OF R LOW EXTREM Status: Acute Qualifiers: Chronicity: acute Comment: RLE involvement, continue Lovenox 80mg sc BID (4) HTN (hypertension) Code(s): I10 - ESSENTIAL (PRIMARY) HYPERTENSION Status: Chronic Qualifiers: Hypertension type: essential hypertension Qualified Code(s): I10 - Essential (primary) hypertension Comment: stable, continue Lisinopril 20mg daily - Plan * Acute respiratory failure- she has done well on nasal cannula overnight. * Pulmonary Embolus- she has been transitioned to Eliquis * DVT- as above * HTN- blood pressure is stable * Presumed pneumonia- consider change to oral antibiotics. * Can move out of the [facility]
--- NOTE | 2017-12-20 17:56 | PRG ---
DATE OF SERVICE: 12/20/2017 SUBJECTIVE: Ms. Reyes has no complaints. She says she is feeling much better. She says she is feeling close to her baseline. OBJECTIVE: VITAL SIGNS: She is afebrile, heart rate 88, respiratory rate is 18, oximetry is 92. Blood pressure 145/74. LUNGS: Clear. IMPRESSION: Deep pulmonary emboli and ? pneumonia versus pulmonary hemorrhage of pulmonary emboli. PLAN: Continue antimicrobial therapy. She is now on Eliquis. Discontinue her cefepime and place he r on p.o. antimicrobial therapy alone.
[2017-12-20] MEDS: Acetaminophen 500 MG TAB PO PRN (20:26)
[2017-12-21] MEDS ORDERED: diphenhydrAMINE 25 MG CAP PO SCH (01:15)
[2017-12-21 05:19] LABS: Anion Gap 14 mmol/L (10-20); BUN (Urea Nitrogen) 22 mg/dL (9.8-20.1); Calc. Creatinine Clearance 85 mL/min (70-130); Calcium 8.6 mg/dL (7.8-10.44); Carbon Dioxide 22 mmol/L (23-31); Chloride 106 mmol/L (98-107); Estimated GFR-MDRD 78; Glucose 160 mg/dL (80-115); Potassium 4.5 mmol/L (3.5-5.1); Sodium 137 mmol/L (136-145)
[2017-12-21 05:36] LABS: Hemoglobin 12.3 g/dL (12.0-16.0); Lymphocytes 13 % (21-51); MDiff Complete? YES; Mean Corpuscular HGB CONC 32.8 g/dL (32.0-36.0); Mean Corpuscular Hemoglobin 28.1 pg (27.0-31.0); Mean Corpuscular Volume 85.7 fL (78.0-98.0); Mean Platelet Volume 9.9 fL (7.4-10.4); Neutrophil 87 % (42-75); PLT Morphology Comment Appears Adequate; Platelet Count 233 thou/uL (130-400); RBC Distribution Width 13.8 % (11.5-14.5); RBC Morphology Normal; Red Blood Cell (RBC) Count 4.37 mill/uL (4.20-5.40); White Blood Cell (WBC) Count 25.5 thou/uL (4.8-10.8)
[2017-12-21] MEDS: Lisinopril 20 MG TAB PO SCH (08:50)
[2017-12-21] MEDS: ALPRAZolam 0.25 MG TAB PO SCH ×3 (08:50→20:22)
[2017-12-21] MEDS: Famotidine 20 MG TAB PO SCH ×2 (08:50→20:23)
[2017-12-21] MEDS: Acetaminophen 500 MG TAB PO PRN (08:52)
[2017-12-21] MEDS: Apixaban 5 MG TAB PO SCH ×2 (10:27→20:23)
[2017-12-21] MEDS: Mometasone/Formoterol 120 PUFF INHALER INH SCH ×2 (10:38→19:18)
--- NOTE | 2017-12-21 13:39 | PDOC.PN ---
- Subjective Encounter Start Date: 12/21/17 Encounter Start Time: 13:36 Ms. Reyes was seen today in follow-up of Pulmonary embolus with acute respiratory failure. She is feeling much better. She has been ambulating, and denies any complaints. - Objective Resuscitation Status: Resuscitation Status FULL:Full Resuscitation MAR Reviewed: Yes Vital Signs & Weight: Vital Signs (12 hours) Temp Pulse Resp BP BP Pulse Ox 12/21/17 11:11 80 14 12/21/17 08:50 141/72 H 12/21/17 08:00 98.7 F 93 18 95 12/21/17 07:36 98.7 F 93 18 141/72 H 95 12/21/17 03:54 97.9 F 90 20 135/76 90 L 12/21/17 03:27 95 12/21/17 03:26 95 Weight Admit Weight 187 lb Weight 190 lb 12.8 oz I&O: 12/20/17 12/21/17 12/22/17 06:59 06:59 06:59 Intake Total 730 2120 Output Total 1250 225 Balance -520 1895 Result Diagrams: 12/21/17 04:06 12/21/17 04:06 Phys Exam - Physical Examination HEENT: PERRLA Respiratory: no wheezing, no rales, no rhonchi, clear to auscultation bilateral Cardiovascular: RRR, no significant murmur, no rub no gallop Gastrointestinal: soft, non-tender, no distention, positive bowel sounds Musculoskeletal: no edema, edema present Dx/Plan (1) Acute respiratory failure with hypoxia Code(s): J96.01 - ACUTE RESPIRATORY FAILURE WITH HYPOXIA Status: Acute Comment: BiPAP as clinically needed, high-flow O2 via NC, Duonebs, Solumedrol, empiric Levaquin and Cefepime with ? underlying infectious process, likely more edema than infectious process (2) Pulmonary embolism, bilateral Code(s): I26.99 - OTHER PULMONARY EMBOLISM WITHOUT ACUTE COR PULMONALE Status : Acute Comment: Extensive involvement, continue Lovenox BID, O2 support (3) Deep vein thrombosis (DVT) of right lower extremity Code(s): I82.401 - ACUTE EMBOLISM AND THOMBOS UNSP DEEP VEINS OF R LOW EXTREM Status: Acute Qualifiers: Chronicity: acute Comment: RLE involvement, continue Lovenox 80mg sc BID (4) HTN (hypertension) Code(s): I10 - ESSENTIAL (PRIMARY) HYPERTENSION Status: Chronic Qualifiers: Hypertension type: essential hypertension Qualified Code(s): I10 - Essential (primary) hypertension Comment: stable, continue Lisinopril 20mg daily - Plan * acute hypoxic respiratory failure due to PE- improved * Continue Eliquis- and she may also need supplemental oxygen for a short while at home * DVT- continue Eliquis * Pneumonia- she has been changed to Levaquin, and will place her on oral steroids * Hopefully home tomorrow.
[2017-12-21] MEDS ORDERED: diphenhydrAMINE 25 MG CAP PO PRN (13:52)
--- NOTE | 2017-12-21 17:35 | PRG ---
DATE OF SERVICE: 12/21/2017 Ms. Reyes is doing well. She has no complaints. She denies shortness of breath. PHYSICAL EXAMINATION: LUNGS: Her lungs are clear. VITAL SIGNS: Her vital signs have been stable. IMPRESSION: She is tentatively scheduled for discharge. She should follow up with Dr. Hair in 3-4 w eeks.
[2017-12-22 04:57] LABS: Anion Gap 13 mmol/L (10-20); BUN (Urea Nitrogen) 23 mg/dL (9.8-20.1); Calc. Creatinine Clearance 88 mL/min (70-130); Calcium 8.5 mg/dL (7.8-10.44); Carbon Dioxide 22 mmol/L (23-31); Chloride 108 mmol/L (98-107); Estimated GFR-MDRD 82; Glucose 107 mg/dL (80-115); Sodium 139 mmol/L (136-145)
[2017-12-22 05:12] LABS: Band 7 % (5-11); Eosinophils 1 % (0-10); Lymphocytes 13 % (21-51); MDiff Complete? YES; Mean Corpuscular HGB CONC 32.3 g/dL (32.0-36.0); Mean Corpuscular Hemoglobin 27.6 pg (27.0-31.0); Mean Corpuscular Volume 85.6 fL (78.0-98.0); Mean Platelet Volume 9.7 fL (7.4-10.4); Metamyelocyte 5 % (0-0); Monocytes 7 % (0-10); Myelocyte 2 % (0-0); Neutrophil 65 % (42-75); PLT Morphology Comment Appears Adequate; Platelet Count 242 thou/uL (130-400); Red Blood Cell (RBC) Count 4.35 mill/uL (4.20-5.40); White Blood Cell (WBC) Count 28.2 thou/uL (4.8-10.8)
[2017-12-22] MEDS: Mometasone/Formoterol 120 PUFF INHALER INH SCH (06:39)
[2017-12-22 07:28] VITALS: TEMP 99.3
--- NOTE | 2017-12-22 07:30 | PDOC.PN ---
- Subjective Encounter Start Date: 12/22/17 Encounter Start Time: 07:28 Ms. Reyes was seen today in follow-up of Pulmonary Embolus. She says she feels fine, and does not have any complaints. - Objective Resuscitation Status: Resuscitation Status FULL:Full Resuscitation MAR Reviewed: Yes Vital Signs & Weight: Vital Signs (12 hours) Temp Pulse Resp Pulse Ox 12/22/17 06:37 84 20 96 12/22/17 02:22 66 20 95 12/22/17 00:34 99 12/21/17 22:31 98.5 F 12/21/17 22:00 94 18 99 12/21/17 20:00 99.0 F 88 20 97 Weight Admit Weight 187 lb Weight 190 lb 12.8 oz I&O: 12/21/17 12/22/17 12/23/17 06:59 06:59 06:59 Intake Total 2120 1160 Output Total 225 Balance 1895 1160 Result Diagrams: 12/22/17 04:20 12/22/17 04:20 Phys Exam - Physical Examination HEENT: PERRLA Respiratory: no wheezing, no rales, no rhonchi, clear to auscultation bilateral Cardiovascular: RRR, no significant murmur, no rub Gastrointestinal: soft, non-tender, no distention, positive bowel sounds Musculoskeletal: no edema Dx/Plan (1) Acute respiratory failure with hypoxia Code(s): J96.01 - ACUTE RESPIRATORY FAILURE WITH HYPOXIA Status: Acute Comment: BiPAP as clinically needed, high-flow O2 via NC, Duonebs, Solumedrol, empiric Levaquin and Cefepime with ? underlying infectious process, likely more edema than infectious process (2) Pulmonary embolism, bilateral Code(s): I26.99 - OTHER PULMONARY EMBOLISM WITHOUT ACUTE COR PULMONALE Status : Acute Comment: Extensive involvement, continue Lovenox BID, O2 support (3) Deep vein thrombosis (DVT) of right lower extremity Code(s): I82.401 - ACUTE EMBOLISM AND THOMBOS UNSP DEEP VEINS OF R LOW EXTREM Status: Acute Qualifiers: Chronicity: acute Comment: RLE involvement, continue Lovenox 80mg sc BID (4) HTN (hypertension) Code(s): I10 - ESSENTIAL (PRIMARY) HYPERTENSION Status: Chronic Qualifiers: Hypertension type: essential hypertension Qualified Code(s): I10 - Essential (primary) hypertension Comment: stable, continue Lisinopril 20mg daily - Plan * Acute respiratory failure- improved * Pulmonary Embolus- she has improved, and is stable for discharge home .
[2017-12-22] MEDS ORDERED: predniSONE 20 MG TAB PO SCH (08:00)
[2017-12-22] MEDS: Famotidine 20 MG TAB PO SCH (09:03)
[2017-12-22 09:04] VITALS: BP 141/72
[2017-12-22] MEDS: ALPRAZolam 0.25 MG TAB PO SCH (09:04)
[2017-12-22] MEDS: Lisinopril 20 MG TAB PO SCH (09:04)
[2017-12-22] MEDS: Apixaban 5 MG TAB PO SCH (09:07)
--- NOTE | 2017-12-22 13:56 | DIS ---
DATE OF ADMISSION: 12/15/2017 DATE OF DISCHARGE: 12/22/2017 PRIMARY CARE PHYSICIAN: Daniela Gaines M.D. DISCHARGE DISPOSITION: Home. PRIMARY DISCHARGE DIAGNOSES: 1. Acute pulmonary embolism. 2. Acute respiratory failure with hypoxemia secondary to acute pulmonary embolism. 3. Deep vein thrombosis. 4. Presumed pneumonia. 5. Hypertension. DISCHARGE MEDICATIONS: Include Eliquis 10 mg twice a day for 10 days then followed by Eliquis 5 mg t wice a day, Levaquin 750 mg for 3 days. She is to continue lisinopril 20 mg daily, Nexium 40 mg mariaelena y and vitamin D3 5000 units a day. PROCEDURES DONE DURING ADMISSION: The patient had an echocardiogram in which the ejection fraction w as estimated at 60%-65% with grade I/III diastolic dysfunction. CODE STATUS: Full code. ALLERGIES: ASPIRIN, ZETIA, HYDROCHLOROTHIAZIDE, TRIAMTERENE, FLU VACCINE and PNEUMONIA VACCINE. HOSPITAL COURSE: Ms. Reyes is a pleasant 67-year-old female who presented to the emergency room with complaints of shortness of breath as well as right lower extremity edema. When she was seen in the emergency room, she had a CT angiogram of the chest, which showed a massive bilateral pulmonary embol ism with some associated parenchymal disease. She was admitted to our facility and started on Loveno x. An echocardiogram was done to rule out significant RV strain. There was no evidence of severe RV strain. She also was requiring very high flow oxygen and for this reason, she was kept in the IMCU. The patient improved over the course of the next couple of days. Of note, she was also treated for presumed pneumonia as there were infiltrates on her chest x-ray and CT as well. Once she was clinic ally stable and transitioned over to an oral anticoagulant, the risks and benefits were discussed wit h the patient. She was able to be discharged home with close follow up with Dr. Daniela Gaines in 1 w [facility].
== END 2017-12-22 10:45 | disposition home or self-care (01) | DRG 175 ==
LOC: IMCU/EMU 15:36 → ONC 12-20 20:51
PROVIDERS: ADMIT Internal Medicine; ATTEND Internal Medicine
PROC: 5A09357 Assistance with Respiratory Ventilation, Less than 24 Consecutive Hours, Continuous Positive Airway Pressure (ICD-10-PCS; principal; 2017-12-15)
DX: I26.99 Other pulmonary embolism without acute cor pulmonale (principal); J96.01 Acute respiratory failure with hypoxia; J18.0 Bronchopneumonia, unspecified organism; J44.0 Chronic obstructive pulmonary disease with (acute) lower respiratory infection; I82.401 Acute embolism and thrombosis of unspecified deep veins of right lower extremity; I50.30 Unspecified diastolic (congestive) heart failure; I11.0 Hypertensive heart disease with heart failure; E66.9 Obesity, unspecified; F17.210 Nicotine dependence, cigarettes, uncomplicated; Z68.30 Body mass index [BMI] 30.0-30.9, adult
CPT/HCPCS: 36415; 71045; 80048; 82805; 83880; 84439; 84443; 85025; 87070; 87205; 93306; 94640; 94660; 94664; A4216; J0692; J1650; J1940; J2920; J7050; J7506; J7620

== ENCOUNTER 2018-01-07 09:51 | Outpatient (CLI) | payer MEDICARE ==
--- NOTE | 2018-01-07 11:57 | RAD ---
PA AND LATERAL VIEWS OF THE CHEST: HISTORY: DVT and PE. FINDINGS: Comparison is made with the exam dated 12/18/17. The heart size is normal. A small right pleural effu bridgette with accompanying adjacent parenchymal changes in the right lateral lung base are again seen. T he heart size is normal. The left lung is clear. IMPRESSION: Stable exam. POS: [facility]
== END 2018-01-07 09:52 | disposition home or self-care (01) ==
LOC: RAD-FRANK 09:51
PROVIDERS: ATTEND Nurse Practitioner Family
DX: F17.200 Nicotine dependence, unspecified, uncomplicated (principal); I80.201 Phlebitis and thrombophlebitis of unspecified deep vessels of right lower extremity; I10 Essential (primary) hypertension; E78.5 Hyperlipidemia, unspecified; I26.99 Other pulmonary embolism without acute cor pulmonale; J96.01 Acute respiratory failure with hypoxia; J18.9 Pneumonia, unspecified organism; K21.9 Gastro-esophageal reflux disease without esophagitis; I51.9 Heart disease, unspecified; R94.30 Abnormal result of cardiovascular function study, unspecified; D69.6 Thrombocytopenia, unspecified; R79.89 Other specified abnormal findings of blood chemistry; Z79.899 Other long term (current) drug therapy
CPT/HCPCS: 71046

== ENCOUNTER 2018-03-23 14:59 | Outpatient (CLI) | payer MEDICARE ==
--- NOTE | 2018-03-23 15:46 | RAD ---
CHEST TWO VIEWS: 03/23/18 HISTORY: Dyspnea. COMPARISON: 01/07/18. FINDINGS: The cardiac silhouette and pulmonary vasculature are unremarkable. Mediastinum is midline. Minimal scarring remains at the right lateral costophrenic angle where the in filtrate on the prior exams has resolved. Upper lobes are clear. No pneumothorax. IMPRESSION: Interval resolution right lateral basilar infiltrate. No new abnormalities are demonstrated. POS: [facility]
== END 2018-03-23 15:00 | disposition home or self-care (01) ==
LOC: RAD 14:59
PROVIDERS: ATTEND Internal Medicine Pulmonary Disease
DX: R06.00 Dyspnea, unspecified (principal)
CPT/HCPCS: 71046

== ENCOUNTER 2018-07-05 12:40 | Outpatient (CLI) | payer MEDICARE ==
--- NOTE | 2018-07-05 14:23 | ULT ---
BILATERAL LOWER EXTREMITY VENOUS DOPPLER ULTRASOUND: HISTORY: Bilateral leg pain. The patient has a history of DVT in the right lower extremity and is currently o n blood thinners. TECHNIQUE: Mcmullen-scale ultrasound with color-flow and spectral Doppler imaging of the deep venous systems of the lower extremities is performed bilaterally. FINDINGS: There is good flow, compressibility, and augmentation noted in the left common femoral, femoral, deep femoral, popliteal, posterior tibial, and greater saphenous veins. No evidence of DVT is seen in th e left lower extremity. There is absence of compression with the presence of flow due to a nonocclusive thrombus extending fr om the right mid femoral vein to the distal popliteal vein. The remainder of the deep venous system of the right lower extremity is otherwise patent. IMPRESSION: Nonocclusive deep venous thrombosis in the right lower extremity. Report was called over the telephone to Jenelle Gerardo, Nurse Practitioner, at 2:03 p.m. MICHELLE CASILLAS POS: [facility]
--- NOTE | 2018-07-05 15:19 | ULT ---
FBilateral lower extremity arterial Doppler ultrasound: 07/05/2018 COMPARISON: None HISTORY: Lower extremity pain TECHNIQUE: Multiplanar grayscale sonographic imaging of the arterial structures of bilateral lower ex tremities obtained with color flow and spectral analysis. FINDINGS: The common femoral artery, profunda femoral artery, superficial femoral artery, popliteal a rtery, anterior tibial artery, posterior tibial artery, and dorsalis pedis artery is patent bilateral ly. Triphasic waveforms are noted on the left within the common femoral artery, superficial femoral a rtery, and popliteal artery. Left anterior tibial artery, posterior tibial artery, and dorsalis pedis artery demonstrate biphasic waveforms. Right common femoral artery and proximal superficial femoral artery are triphasic. Right mid and dist al superficial femoral artery, popliteal artery, anterior tibial artery, posterior tibial artery, and dorsalis pedis artery are patent. Profunda femoral artery is monophasic bilaterally. Peak systolic velocity in centimeters per second for the right lower extremity is as follows: INTERNSHIP COORDINATOR 84 Profunda femoral artery 87 SFA proximal 78 SFA mid 68 SFA distal 61 Popliteal 58 RAZ 53 [employer]END PLANT OPERATOR 45 DPA 48 Peak systolic velocity in centimeters per second for the left lower extremity is as follows: INTERNSHIP COORDINATOR 97 Profunda femoral artery 80 SFA proximal 42 SFA mid 64 SFA distal 102 Popliteal 49 RAZ 57 BLEND PLANT OPERATOR 50 DPA 44 Impression: Patent arterial structures of the bilateral lower extremities as detailed above.
== END 2018-07-05 12:41 | disposition home or self-care (01) ==
LOC: ULT 12:40
PROVIDERS: ATTEND Nurse Practitioner Family
DX: I80.201 Phlebitis and thrombophlebitis of unspecified deep vessels of right lower extremity (principal); M79.604 Pain in right leg; M79.605 Pain in left leg; R94.30 Abnormal result of cardiovascular function study, unspecified; G62.9 Polyneuropathy, unspecified; I51.89 Other ill-defined heart diseases; F17.200 Nicotine dependence, unspecified, uncomplicated; I82.401 Acute embolism and thrombosis of unspecified deep veins of right lower extremity
CPT/HCPCS: 93923; 93970

== ENCOUNTER 2020-02-01 08:48 | Outpatient (CLI) | payer MEDICARE ==
--- NOTE | 2020-02-01 09:41 | RAD ---
CHEST 2 VIEWS: COMPARISON: 01/07/2018, 03/23/2018. HISTORY: Pleural friction. Rib pain. FINDINGS: Slight elongation of the aorta. Pulmonary vessels and hilum are normal. Decreased right-sided pleur al effusion. Trace right-sided effusion does remain. The left costophrenic angle is clear. No cons olidation or mass. No pneumothorax or acute osseous abnormality. IMPRESSION: Chronic blunting of the right costophrenic angle which may represent atelectasis with superimposed sm all effusion. POS: [facility]
== END 2020-02-01 08:49 | disposition home or self-care (01) ==
LOC: RAD 08:48
PROVIDERS: ATTEND Nurse Practitioner Family
DX: R09.89 Other specified symptoms and signs involving the circulatory and respiratory systems (principal)
CPT/HCPCS: 71046